=== PATIENT | female | born 1990 | race Caucasian/White ===

== ENCOUNTER 2023-04-06 17:07 | Emergency (ER) | payer MEDICAID ==
[~2023-04-06] VITALS: Ht 160 cm; Wt 56.7 kg
--- NOTE | 2023-04-06 17:24 | NUR ---
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
--- NOTE | 2023-04-06 17:30 | NUR ---
DR JANE AT BED SIDE FOR EVAL.
--- NOTE | 2023-04-06 17:45 | NUR ---
IV INSERTED ON LT AC NO 20G ,BLOOD COLLECTED AND SEND TO LAB.
[2023-04-06 18:07] LABS: BASOPHILS # (AUTO) 0.1 K/uL (0.0-0.2); BASOPHILS % (AUTO) 0.7 % (0.0-2.0); EOSINOPHILS % (AUTO) 3.8 % (0.0-6.0); HEMATOCRIT 41 % (33-45); HEMOGLOBIN 13.5 g/dL (11.5-14.8); LYMPHOCYTES # (AUTO) 1.7 K/uL (0.8-4.8); LYMPHOCYTES % (AUTO) 21.3 % (20.0-44.0); MEAN CORPUSCULAR HGB CONC 33 g/dl (31.0-36.0); MEAN CORPUSCULAR VOLUME 89 fL (82-100); MONOCYTES # (AUTO) 0.6 K/uL (0.1-1.30); MONOCYTES % (AUTO) 7.7 % (2.0-12.0); NEUTROPHILS # (AUTO) 5.4 K/uL (1.8-8.9); NEUTROPHILS % (AUTO) 66.5 % (43.0-81.0); PLATELET COUNT (AUTO) 231 K/uL (150-450); RED BLOOD CELL COUNT(AUTO) 4.61 MIL/uL (4.0-5.2); WHITE BLOOD COUNT (AUTO) 8.1 K/uL (4.3-11.0)
[2023-04-06 18:18] LABS: CREATININE 0.7 mg/dL (0.6-1.3); POTASSIUM 3.7 mmol/L (3.5-5.1)
[2023-04-06 18:21] LABS: ALBUMIN 3.9 g/dL (3.4-5.0); BILIRUBIN,DIRECT 0.1 mg/dL (0.0-0.2); BILIRUBIN,TOTAL 0.6 mg/dL (0.2-1.0); TOTAL PROTEIN, SERUM 7.3 g/dL (6.4-8.2)
[2023-04-06 18:24] LABS: BILIRUBIN,URINE NEGATIVE (NEGATIVE); COLOR,URINE YELLOW (YELLOW); LEUKOCYTE ESTERASE ,URINE TRACE (NEGATIVE); NITRITE, URINE NEGATIVE (NEGATIVE); PH,URINE 7.5 (5.0-8.0); PROTEIN,URINE NEGATIVE (NEGATIVE); UGLUCOSE NEGATIVE (NEGATIVE)
[2023-04-06 18:36] LABS: BACTERIA,URINE 3+ /HPF (None Seen); RBC,URINE 0-2 /HPF (0-2); SQUAMOUS EPITHELIAL CELL,UR 21-50 /HPF (None Seen)
--- NOTE | 2023-04-06 19:13 | NUR ---
PATIENT HANDED OVER TO GAYATHRI DE LA ROSA COCO
[2023-04-06] MEDS ORDERED: OMEP40CA21 PO (20:22)
--- NOTE | 2023-04-06 20:30 | NUR ---
Patient discharged to home in stable condition. Written and verbal after care instructions given. Patient verbalizes understanding of instruction.
--- NOTE | 2023-04-06 20:30 | NUR ---
IV removed. Catheter intact and site benign. Pressure and 4x4 applied to site. No bleeding noted.
[2023-04-06 20:31] VITALS: BP 121/75; TEMP 98.5; O2SAT 100
== END 2023-04-06 20:32 | disposition home or self-care (01) ==
LOC: ER 17:33
DX: K29.70 Gastritis, unspecified, without bleeding (principal)
CPT/HCPCS: 36415; 80048-TC; 80076-TC; 81001; 83690-TC; 84703-TC; 85025-TC; 87086-TC